=== PATIENT | female | born 1950 | race Hispanic/Latino ===

== ENCOUNTER 2017-08-13 06:33 | Observation (INO) | payer BC, MEDICARE ==
[2017-08-13] MEDS ORDERED: NACL 0.9% 500 ML 500 ML IV SCH (07:00)
[2017-08-13 07:30] LABS: Basophils % (Auto) 0.9 % (0.0-1.8); Eosinophils % (Auto) 3.3 % (0.0-4.3); Hematocrit 33.8 % (30.3-42.9); Hemoglobin 11.4 gm/dl (10.1-14.3); Mean Corpuscular HGB Conc 34 % (30-34); Mean Corpuscular Hemoglobin 29 pg (28-32); Mean Corpuscular Volume 86 fl (79-97); Platelet Count 275 K/mm3 (140-440); Red Blood Count 3.93 M/mm3 (3.65-5.03); Red Cell Distribution Width 14.5 % (13.2-15.2); White Blood Count 7.7 K/mm3 (4.5-11.0)
[2017-08-13 07:41] LABS: Calcium 10.1 mg/dL (8.4-10.2); Chloride 102.2 mmol/L (98-107); INR 1.09 (0.87-1.13); Potassium 4.6 mmol/L (3.6-5.0)
[2017-08-13] MEDS ORDERED: CALAN ONE (08:13)
[2017-08-13] MEDS ORDERED: NITROGLYCERIN SYRINGE 3 ML ONE (08:13)
[2017-08-13] MEDS ORDERED: HEPARIN/NS 5000 UNIT/500ML(CATH LAB) 1,000 ML IR ONE (08:13)
[2017-08-13] MEDS: SUBLIMAZE ONE ×3 (08:49→09:21)
[2017-08-13] MEDS: VERSED ONE ×3 (08:50→09:21)
[2017-08-13] MEDS: XYLOCAINE 2% INFILTRATI ONE ×2 (08:50→08:53)
[2017-08-13] MEDS: HEPARIN 10,000 UNITS/10 ML ONE ×3 (08:50→09:20)
[2017-08-13] MEDS ORDERED: EFFIENT PO ONE (09:28)
[2017-08-13] MEDS ORDERED: ALUM-MAG HYDROX-SIMETH 200-200-20MG/5ML ONE (09:29)
[2017-08-13] MEDS ORDERED: ZOFRAN IV PRN (09:34)
[2017-08-13] MEDS ORDERED: TYLENOL PO PRN (09:34)
[2017-08-13] MEDS ORDERED: D50W (25GM) Syringe IV PRN (09:41)
[2017-08-13] MEDS ORDERED: IMDUR PO SCH (10:00)
[2017-08-13] MEDS ORDERED: LOPRESSOR PO SCH (10:00)
[2017-08-13] MEDS: NOVOLOG SUB-Q SCH ×3 (10:42→22:50)
[2017-08-13] MEDS ORDERED: NOVOLOG SUB-Q ONE (10:44)
--- NOTE | 2017-08-13 15:18 | Cardiac Catherization Report ---
REFERRING PHYSICIAN: Charlie Ramirez MD INDICATION FOR PROCEDURE: The patient is a pleasant 67-year-old female with a history of proximal LAD stenosis, found to have chest pain, dyspnea on exertion, abnormal stress test with anterior ischemia, already on metoprolol and Imdur. Referred for left heart catheterization. Risks, benefits, and potential alternatives explained at length prior to obtaining informed consent. PROCEDURE IN DETAIL: The patient brought to the center medical and lab director in a postabsorptive state, prepped and draped in sterile fashion. Uriel's test in right hand was normal. A 2 mL of 2% lidocaine used to anesthetize the right wrist. A standard 6-[place] hydrophilic sheath used to cannulate the right radial artery via modified Seldinger technique. All exchanges performed to exchange a J-tip guidewire. JL3.5 catheter used to engage left main. No dampening or ventricularization. Cineangiography performed in all projections. JR4 catheter used to cross the aortic valve under fluoroscopic guidance. Left ventriculography performed in 30 CARNES and 30 FRENCH projections via hand injections, catheter flushed. Manual pullback performed with continuous pressure monitoring. Catheter used to engage the right coronary. No dampening or ventricularization. Cineangiography performed in all projections. Next, catheter removed from the body. DATA: Aortic pressure is 120/50, LV pressure is 120, LVEDP of 20 mmHg. Left ventriculography revealed normal left ventricular systolic performance with estimated ejection fraction of 55% to 60%. No evidence of aortic stenosis. CORONARY ANATOMY: This is a right dominant system. The right coronary is a moderate sized vessel, courses AV groove, distally bifurcates in the posterior descending and posterolateral branches. No discrete stenosis noted. Left main is without significant disease. Bifurcates in left anterior descending and left circumflex. Left circumflex is a moderate sized vessel, courses AV groove. No significant disease. LAD is a moderate sized vessel, courses anterior intergroove, wraps around the apex. There is an eccentric 80% to 90% proximal LAD stenosis. At this point, given her nuclear stress test with anterolateral ischemia symptoms despite therapy with Imdur and beta blockade, I decided to proceed with PCI. Heparin was given. Abnormal ACT confirmed. An EBU 3.5 guide used to engage left main without difficulty. We used Prowater wire to cross the lesion without difficulty. We predilated the lesion with a 2.5 x 12 balloon. Next, we used a 3.0 x 15 Xience drug-eluting stent at 13 LAVERNE for 30 seconds. Good angiographic result. Next, intravascular ultrasound was performed throughout the LAD, which revealed a well apposed and well expanded stent. No other significant disease identified in the LAD or left main. CONCLUSIONS: 1. Single vessel coronary artery disease. 2. Successful IVUS guided PCI of 80% eccentric proximal LAD stenosis with placement of drug-eluting stent (Xience 3.0 x 15) with excellent final angiographic and ultrasonographic result. Final JOE 3 flow with 0% residual stenosis. 3. Preserved left ventricular systolic performance, estimated ejection fraction of 55% to 60%. 4. No evidence of aortic stenosis. At this point, the patient is clinically stable, loaded with Effient and aspirin. Standard radial care. Aggressive risk factor modification. Results of the procedure. She is chest pain free and clinically stable. Results of the procedure were explained at length to the patient and family. All questions and concerns were addressed. JOB# [id number] [place]/NT[place]
[2017-08-13] MEDS ORDERED: DITROPAN PO SCH (18:00)
[2017-08-13] MEDS ORDERED: NORVASC PO SCH (22:00)
[2017-08-14 05:45] LABS: Basophils % (Auto) 0.6 % (0.0-1.8); Eosinophils % (Auto) 2.4 % (0.0-4.3); Hematocrit 36.4 % (30.3-42.9); Hemoglobin 11.9 gm/dl (10.1-14.3); Mean Corpuscular HGB Conc 33 % (30-34); Mean Corpuscular Hemoglobin 29 pg (28-32); Mean Corpuscular Volume 88 fl (79-97); Platelet Count 274 K/mm3 (140-440); Red Blood Count 4.16 M/mm3 (3.65-5.03); Red Cell Distribution Width 14.3 % (13.2-15.2); White Blood Count 6.8 K/mm3 (4.5-11.0)
[2017-08-14 06:10] LABS: Creatine Kinase MB 1.4 ng/mL (0.0-4.0)
[2017-08-14 06:14] LABS: Anion Gap 21 mmol/L; Blood Urea Nitrogen 14 mg/dL (7-17); Calcium 9.5 mg/dL (8.4-10.2); Carbon Dioxide 22 mmol/L (22-30); Chloride 103.1 mmol/L (98-107); Creatine Kinase 45 units/L (30-135); Glucose 111 mg/dL (65-100); Potassium 4.2 mmol/L (3.6-5.0); Sodium 142 mmol/L (137-145)
--- NOTE | 2017-08-14 09:06 | Short Stay Summary ---
Short Stay Documentation Date of service: 08/14/17 - History H&P: obtained from office - Allergies and Medications Current Medications: Allergies No Known Allergies Allergy (Unverified 08/13/17 06:33) Home Medications Medication Instructions Recorded Confirmed Last Taken Type Aspirin [Aspirin BABY CHEW TAB] 81 mg PO DAILY 08/13/17 08/13/17 08/13/17 07:39 History 81mg AtorvaSTATin [Lipitor] 20 mg PO HS 08/13/17 08/13/17 08/12/17 History 20mg Calcium Carbonate [Calcium] 600 mg PO BID 08/13/17 08/13/17 08/12/17 History 600mg ISOSORBIDE MONOnitrate [Imdur ER] 120 mg PO DAILY 08/13/17 08/13/17 08/12/17 History 120mg Insulin Glargine,Hum.rec.anlog 69 unit SQ [facility] 08/13/17 08/13/17 08/12/17 History [Lantus Solostar] 69units Losartan [Cozaar] 100 mg PO 08/13/17 08/13/17 08/12/17 History 100mg Metoprolol [Lopressor TAB] 100 mg PO QAM 08/13/17 08/13/17 08/12/17 History 100mg Oxybutynin [Ditropan] 5 mg PO QPM 08/13/17 08/13/17 08/12/17 History 5mg Paroxetine HCl [PARoxetine] 40 mg PO HS 08/13/17 08/13/17 08/12/17 History 40mg Sulfamethoxazole/Trimethoprim 2 tab PO BID 08/13/17 08/13/17 08/12/17 History [Bactrim 400-80 mg] 2 tab Temazepam [Temazepam] 30 mg PO QHS 08/13/17 08/13/17 08/12/17 History 30mg amLODIPine [Norvasc] 5 mg PO HS 08/13/17 08/13/17 08/12/17 History 5mg metFORMIN [Glucophage] 1,000 mg PO BID 08/13/17 08/13/17 08/12/17 History 1000mg Active Medications Acetaminophen (Tylenol) 650 mg PO Q4H PRN PRN Reason: Pain MILD(1-3)/Fever >100.5/RIVERA Amlodipine Besylate (Norvasc) 5 mg PO HS [facility] Last Admin: 08/13/17 22:40 Dose: 5 mg Aspirin (Ecotrin) 325 mg PO QDAY [facility] Atorvastatin Calcium (Lipitor) 40 mg PO QHS [facility] Last Admin: 08/13/17 22:40 Dose: 40 mg Dextrose (D50w (25gm) Syringe) 50 ml IV PRN PRN PRN Reason: Hypoglycemia Insulin Aspart (Novolog) 0 units SUB-Q ACHS LITZY PRN Reason: Protocol Last Admin: 08/13/17 22:50 Dose: Not Given Isosorbide Mononitrate (Imdur) 120 mg PO DAILY [facility] Losartan Potassium (Cozaar) 100 mg PO QDAY [facility] Metoprolol Succinate (Toprol Xl) 100 mg PO QDAY [facility] Ondansetron HCl (Zofran) 4 mg IV Q8H PRN PRN Reason: N/V unrelieved by Reglan Oxybutynin Chloride (Ditropan) 5 mg PO QPM [facility] Last Admin: 08/13/17 17:20 Dose: 5 mg Prasugrel (Effient) 10 mg PO QDAY [facility] - Brief post op/procedure progress note Date of procedure: 08/13/17 Pre-op diagnosis: abnormal stress test; CAD Post-op diagnosis: same Procedure: C - see cath report Anesthesia: local Estimated blood loss: none Condition: stable - Disposition Condition at discharge: Stable Disposition: [id number] TO HOME OR SELFCARE - Discharge Diagnoses (1) Coronary artery disease Status: Chronic Qualifiers: Coronary Disease-Associated Artery/Lesion type: C [place] vs. transplanted heart: N Associated angina: A (2) Stented coronary artery Status: Chronic (3) Hypertension Status: Chronic Qualifiers: Hypertension type: H (4) Hyperlipidemia Status: Chronic Qualifiers: Hyperlipidemia type: H (5) Diabetes Status: Chronic Qualifiers: Diabetes mellitus type: D Diabetes mellitus complication status: D Diabetes mellitus complication detail: D Diabetic retinopathy severity: D Proliferative retinopathy type: P Diabetes mellitus macular edema: D Diabetes mellitus nursing home insulin use: D Laterality: L Chronic kidney disease stage: C (6) ALBERTO (obstructive sleep apnea) Status: Chronic Short Stay Discharge Plan Activity: advance as tolerated Diet: low fat, low cholesterol, low salt Wound: open to air, keep clean and dry, per your surgeon's advice Follow up with: PRIMARY CARE, [Primary Care Provider] - 7 Days IFRAH LR MD [Staff Physician] - 7 Days ([place] office, 2016 @ 11:15AM) Prescriptions: AtorvaSTATin [Lipitor] 40 mg PO QHS #30 tablet Prasugrel [Effient] 10 mg PO QDAY #30 tablet
--- NOTE | 2017-08-14 09:37 | XRay Report ---
Single view chest: History: Post PCI. Findings: Borderline cardiomegaly. Trachea is midline. No consolidation, pneumothorax or pleural effusion. Impression: No acute cardiopulmonary findings.
[2017-08-14 10:00] VITALS: BP 137/56
[2017-08-14] MEDS ORDERED: TOPROL XL PO SCH (10:00)
[2017-08-14] MEDS ORDERED: COZAAR PO SCH (10:00)
[2017-08-14] MEDS ORDERED: EFFIENT PO SCH (10:00)
[2017-08-14] MEDS ORDERED: ECOTRIN PO SCH (10:00)
[2017-08-14] MEDS ORDERED: IMDUR PO SCH (10:00)
== END 2017-08-14 11:39 | disposition home or self-care (01) ==
LOC: CATHLABREC 06:33 → 4A 09:34
PROVIDERS: ADMIT Internal Medicine; ATTEND Internal Medicine
DX: I25.10 Atherosclerotic heart disease of native coronary artery without angina pectoris (principal); I10 Essential (primary) hypertension; E78.5 Hyperlipidemia, unspecified; E11.9 Type 2 diabetes mellitus without complications; G47.33 Obstructive sleep apnea (adult) (pediatric)
CPT/HCPCS: 36415; 71010; 80048; 82550; 82553; 82962; 84484; 85025; 85347; 85610; 85730; 92978; 93005; 93010; 93458; A9270; C1725; C1753; C1769; C1874; C1887; C1894; C9600; G0378; J1644; J2250; J3010; J7040; 92928; 96372; J1815; Q9967

== ENCOUNTER 2017-09-03 08:55 | Outpatient (CLI) | payer BC, MEDICARE ==
--- NOTE | 2017-09-04 11:09 | Mammography Report ---
BILATERAL MAMMOGRAM with CAD: HISTORY: Cancer screening. Comparison study is dated August 27, 2015. FINDINGS: There are scattered fibroglandular densities (approximately 25%-50% glandular). No mass, distortion, suspicious calcification, or skin change is seen. IMPRESSION: Negative mammogram. There is no mammographic evidence of malignancy. RECOMMENDATION: Follow-up per ACS guidelines. BI-RADS CATEGORY: 1 = Negative ACR BI-RADS MAMMOGRAPHIC CODES: 0 = Needs additional imaging evaluation; 1 = Negative; 2 = Benign; 3 = Probably benign; 4 = Suspicious; 5 = Malignant; 6 = Known biopsy-proven malignancy COMMENT: 1. Dense breast tissue, i.e., adenosis, fibrocystic changes, etc., may obscure an underlying neoplasm. 2. Approximately 10% of cancers are not detected with mammography. 3. A negative mammography report should not delay biopsy if a clinically suspicious mass is present. COMMENT: Patient follow-up letters are generated in [facility].
== END 2017-09-03 08:56 | disposition home or self-care (01) ==
LOC: SPVWC 08:55
PROVIDERS: ATTEND Obstetrics & Gynecology
DX: Z12.31 Encounter for screening mammogram for malignant neoplasm of breast (principal)
CPT/HCPCS: 77067; G0202

== ENCOUNTER 2019-11-16 09:24 | Outpatient (CLI) | payer MEDICARE, OTHER ==
--- NOTE | 2019-11-19 10:35 | Mammography Report ---
DIGITAL SCREENING MAMMOGRAM WITH CAD, 11/16/2019 INDICATION: Routine screening mammography. TECHNIQUE: Digital bilateral 2D mammography was obtained in the craniocaudal and mediolateral obliq ue projections. This examination was interpreted with the benefit of Computer-Aided Detection analysi s. COMPARISON: 10/29/2018 FINDINGS: Breast Density: The breasts are heterogeneously dense, which may obscure small masses. There is no evidence of dominant mass, suspicious calcifications or architectural distortion in eithe r breast. A group of stable right inner benign calcifications. IMPRESSION: No mammographic evidence of malignancy. Follow up recommendation: Routine yearly BI-RADS Category 2: Benign. A "normal" or negative report should not discourage follow up or biopsy of a clinically significant f inding. A written summary of these findings will be mailed to the patient. The patient will be entered into a mammography reporting system which will generate a reminder letter for the patient's next appointmen t at the appropriate interval. The [employer] recommends yearly mammograms starting at age 40 and continuing as l eloisa as a woman is in good health. Breast MRI is recommended for women with an approximate 20-25% or greater lifetime risk of breast cancer, including women with a strong family history of breast or ova viridiana cancer or who have been treated for Hodgkin's disease. Signer Name: Pool Churchill MD Signed: 11/19/2019 10:30 AM Workstation Name: [id number]
== END 2019-11-16 09:25 | disposition home or self-care (01) ==
LOC: SPVWC 09:24
PROVIDERS: ATTEND Internal Medicine
DX: Z12.31 Encounter for screening mammogram for malignant neoplasm of breast (principal)
CPT/HCPCS: 77067

== ENCOUNTER 2020-11-17 12:36 | Outpatient (CLI) | payer MEDICARE, OTHER ==
--- NOTE | 2020-11-21 14:25 | Mammography Report ---
DIGITAL SCREENING MAMMOGRAM WITH CAD, 11/21/2020 CLINICAL INFORMATION / INDICATION: Routine screening mammography. TECHNIQUE: Digital bilateral 2D mammography was obtained in the craniocaudal and mediolateral obliqu e projections. This examination was interpreted with the benefit of Computer-Aided Detection analysis . COMPARISON: 11/16/2019, 10/29/2018, 09/03/2017 FINDINGS: Breast Density: There are scattered areas of fibroglandular density. No dominant mass, suspicious calcifications, or architectural distortion in either breast. Cluster of coarse calcifications in the right breast are again noted and appear unchanged. IMPRESSION: No mammographic evidence of malignancy. Follow up recommendation: Routine yearly BI-RADS Category 2: Benign. A "normal" or negative report should not discourage follow up or biopsy of a clinically significant f inding. A written summary of these findings will be mailed to the patient. The patient will be entered into a mammography reporting system which will generate a reminder letter for the patient's next appointmen t at the appropriate interval. The [employer] recommends yearly mammograms starting at age 40 and continuing as l eloisa as a woman is in good health. Breast MRI is recommended for women with an approximate 20-25% or greater lifetime risk of breast cancer, including women with a strong family history of breast or ova viridiana cancer or who have been treated for Hodgkin's disease. Signer Name: Eliza Herndon MD Signed: 11/21/2020 2:20 PM Workstation Name: [id number]
== END 2020-11-17 12:37 | disposition home or self-care (01) ==
LOC: SPVWC 12:36
PROVIDERS: ATTEND Internal Medicine
DX: Z12.31 Encounter for screening mammogram for malignant neoplasm of breast (principal)
CPT/HCPCS: 77067

== ENCOUNTER 2022-01-30 13:06 | Outpatient (CLI) | payer MEDICARE, OTHER ==
--- NOTE | 2022-02-01 14:55 | Mammography Report ---
DIGITAL SCREENING MAMMOGRAM WITH CAD, 01/30/2022 CLINICAL INFORMATION / INDICATION: Routine screening mammography. SCREENING MAMMO Z12.31 TECHNIQUE: Digital bilateral 2D mammography was obtained in the craniocaudal and mediolateral obliqu e projections. This examination was interpreted with the benefit of Computer-Aided Detection analysis . COMPARISON: 11/17/2020 and 11/16/2019 FINDINGS: Breast Density: There are scattered areas of fibroglandular density. No dominant mass, suspicious calcifications, or architectural distortion in either breast. IMPRESSION: No mammographic evidence of malignancy. Follow up recommendation: Routine yearly BI-RADS Category 1: NEGATIVE A "normal" or negative report should not discourage follow up or biopsy of a clinically significant f inding. A written summary of these findings will be mailed to the patient. The patient will be entered into a mammography reporting system which will generate a reminder letter for the patient's next appointmen t at the appropriate interval. The [employer] recommends yearly mammograms starting at age 40 and continuing as l eloisa as a woman is in good health. Breast MRI is recommended for women with an approximate 20-25% or greater lifetime risk of breast cancer, including women with a strong family history of breast or ova viridiana cancer or who have been treated for Hodgkin's disease. Signer Name: Jose Waterman MD Signed: 02/01/2022 2:50 PM Workstation Name: [id number]
== END 2022-01-30 13:07 | disposition home or self-care (01) ==
LOC: SPVWC 13:06
PROVIDERS: ATTEND Internal Medicine
DX: Z12.31 Encounter for screening mammogram for malignant neoplasm of breast (principal)
CPT/HCPCS: 77067

== ENCOUNTER 2022-04-23 14:53 | Outpatient (CLI) | payer MEDICARE, OTHER ==
--- NOTE | 2022-04-23 16:14 | XRay Report ---
CHEST 2 VIEWS INDICATION / CLINICAL INFORMATION: CHRONIC COUGH R05.3. COMPARISON: 08/14/2017 FINDINGS: SUPPORT DEVICES: None. HEART / MEDIASTINUM: No significant abnormality. LUNGS / PLEURA: No significant pulmonary or pleural abnormality. No pneumothorax. ADDITIONAL FINDINGS: No significant additional findings. IMPRESSION: 1. No acute findings. Signer Name: Shahbaz Reyna Jr, MD Signed: 04/23/2022 4:09 PM Workstation Name: [id number]
== END 2022-04-23 14:54 | disposition home or self-care (01) ==
LOC: XRAY 14:53
PROVIDERS: ATTEND Internal Medicine
DX: R05.3 Chronic cough (principal)
CPT/HCPCS: 71046